=== PATIENT | male | born 1955 | race Caucasian/White ===

== ENCOUNTER 2023-10-08 08:32 | Emergency (ER) | payer OTHER ==
[2023-10-08] MEDS ORDERED: Iopamidol 370 76% 100 ML VIAL ONE (09:00)
[2023-10-08] MEDS ORDERED: HYDROcodone/Acetaminophen 5/325 mg Tablet ONE (09:14)
[2023-10-08 09:24] LABS: Hematocrit 40.2 % (42.0-52.0); Hemoglobin 12.8 g/dL (14.0-18.0); Mean Corpuscular HGB CONC 32.1 g/dL (32.0-36.0); Mean Corpuscular Hemoglobin 31.6 pg (27.0-31.0); Mean Corpuscular Volume 98.3 fl (78.0-98.0); Mean Platelet Volume 10.2 fL (7.4-10.4); Platelet Count 240 10x3/uL (130-400); RBC Distribution Width 12.4 % (11.5-14.5); Red Blood Cell (RBC) Count 4.07 mill/uL (4.70-6.10)
[2023-10-08 09:36] LABS: ALT (SGPT) 13 U/L (8-55); AST (SGOT) 14 U/L (5-34); Albumin 2.4 g/dL (3.4-4.8); Alkaline Phosphatase 55 U/L (40-110); Anion Gap 15 mmol/L (10-20); BUN (Urea Nitrogen) 19 mg/dL (8.4-25.7); Bilirubin, Total 0.3 mg/dL (0.2-1.2); Calc. Creatinine Clearance 0 mL/min (70-130); Carbon Dioxide 20 mmol/L (23-31); Chloride 102 mmol/L (98-107); Estimated GFR 99; Globulin 3.3 g/dL (2.4-3.5); Glucose 90 mg/dL (80-115); Lipase 8 U/L (8-78); Potassium 4.4 mmol/L (3.5-5.1); Protein, Total 5.7 g/dL (5.8-8.1); Sodium 133 mmol/L (136-145)
[2023-10-08 09:38] LABS: Manual Diff?? YES
[2023-10-08 09:39] LABS: MDiff Complete? YES
[2023-10-08 09:40] LABS: Band 2 % (5-11); Lymphocytes 9 % (21-51); Monocytes 11 % (0-10); Neutrophil 73 % (42-75); Reactive Lymphocytes 5 % (0-10)
[2023-10-08 09:41] LABS: Hypochromia SLIGHT = 6-15 cells (100X) (0-5/hpf)
[2023-10-08 09:42] LABS: Platelet Adequacy Comment Appears Adequate
[2023-10-08 10:04] LABS: Influenza A by NAA Not Detected (NotDetected); Influenza B by NAA Not Detected (NotDetected); RSV by NAA Not Detected (NotDetected); SARS-CoV-2 NAA Rapid Test DETECTED (NotDetected)
[2023-10-08] MEDS ORDERED: Vancomycin 1 GM VIAL ONE (10:42)
[2023-10-08] MEDS ORDERED: Sodium Chloride 0.9% 250 ML 250 ML ONE (10:42)
[2023-10-08] MEDS ORDERED: Morphine 2 MG/ML VIAL ONE ×2 (11:18→13:38)
[2023-10-08 11:50] LABS: Bilirubin Small (Negative); Blood, Urine Trace (Negative); Clarity Clear (Clear); Glucose, Urine (Dipstick) Negative (Negative); Ketone, Urine 15 mg/dL (Negative); Leukocyte Negative (Negative); Nitrite Negative (Negative); Protein, Urine (Dipstick) Trace mg/dL (Neg-Trace); Specific Gravity, Urine 1.015 (1.005-1.030); Urobilinogen 0.2 mg/dL (Less than 2)
[2023-10-08 11:53] LABS: Bacteria/HPF Rare-Few HPF (None Seen); CAUTI Indications for Culture Dysuria,urgency,freq; RBC/HPF 0-3 HPF (0-3); Squamous Epithelial 0-3 HPF (0-3); WBC/HPF 0-3 HPF (0-3)
[2023-10-08 11:55] LABS: Urine Culture Reflex No No
[2023-10-08] MEDS ORDERED: Sodium Chloride 0.9% 100 ML ONE (12:33)
[2023-10-08] MEDS ORDERED: Piperacillin/Tazobactam 4.5 GM VIAL ONE (12:33)
== END 2023-10-08 15:37 | disposition left against medical advice (07) ==
LOC: MADERS 08:32
DX: A41.89 Other specified sepsis (principal); U07.1 COVID-19; R62.7 Adult failure to thrive; D84.9 Immunodeficiency, unspecified; C34.90 Malignant neoplasm of unspecified part of unspecified bronchus or lung; C79.9 Secondary malignant neoplasm of unspecified site; R53.1 Weakness; I48.91 Unspecified atrial fibrillation; I50.9 Heart failure, unspecified; J44.9 Chronic obstructive pulmonary disease, unspecified; F17.210 Nicotine dependence, cigarettes, uncomplicated; Z79.899 Other long term (current) drug therapy; Z86.16 Personal history of COVID-19
CPT/HCPCS: 0241U; 71045; 71275; 74177; 80053; 81001; 83605; 83690; 83735; 83880; 84484; 85025; 87040; 93005; 96365; 96366; 96367; 96375; 96376; J2272; J2543; J3370; J3490; J7050; Q9967